=== PATIENT | male | born 1940 | race Caucasian/White ===

== ENCOUNTER 2017-06-14 11:15 | Inpatient (IN) ==
[2017-06-14] MEDS ORDERED: SODIUM CHLORIDE 0.9% 1,000 ML IV STA (11:50)
[2017-06-14 11:54] LABS: Basophils # 0.1 10*3/uL (0.0-0.2); Eosinophils # 0.1 10*3/uL (0.0-0.87); Hematocrit 39.6 VOL% (42.0-52.0); Hemoglobin 13.5 GM/DL (14.0-18.0); Immature Granulocytes % 4.5 %; Immature Granulocytes Absolute 0.33 #; Lymphocytes # 1.6 10*3/uL (1.4-4.0); Lymphocytes % 21.1 % (21.2-54.2); Mean Corpuscular HGB Conc 34.1 GM/DL (32-36); Mean Corpuscular Hemoglobin 28 PG (27-34); Mean Corpuscular Volume 80.8 FL (87-102); Mean Platelet Volume 11.1 FL (9.6-12.0); Monocytes # 1.6 10*3/uL (0.11-0.8); Monocytes % 22.3 % (1.7-12.7); Neutrophils # 3.7 10*3/uL (1.4-7.4); Neutrophils % 50.1 % (38.7-73.9); Platelet Count 247 T/CUMM (130-400); White Blood Count 7.3 T/CUMM (4-12)
[2017-06-14 12:22] LABS: Albumin 2.9 G/DL (3.4-5.0); Bilirubin,Total 0.5 MG/DL (0.2-1.0); Calcium 8.7 MG/DL (8.5-10.1); Osmolality,Calculated 272.4 MOS/KG (273-304); Total Protein 7.4 G/DL (6.4-8.3)
[2017-06-14 12:23] LABS: Band Neutrophils 1 % (0-10); Giant Platelets Few; Hypochromasia 1+; Lymphocytes 19 % (20-55); Platelet Estimate Adequate; Segmented Neutrophils 57 % (50-85); Total Cells Counted 100
[2017-06-14 14:42] LABS: Apearance,Urine CLEAR (Clear); Bilirubin,Urine Negative (Negative); Blood, Urine Small mg/dL (Negative); Glucose,Urine (UA) Negative (Negative); Ketones,Urine Negative (Negative); Nitrite,Urine Negative (Negative); Protein,Urine Negative; RBC,Urine <1 /HPF (0-4); Urine Color Straw (Yellow); Urine Specific Gravity 1.004 (1.001-1.035); Urine Urobilinogen < 2.0 EU/DL (0.2-1.0); WBC,Urine <1 /HPF (0-6)
[2017-06-14] MEDS ORDERED: ONDANSETRON 4 MG/2 ML VIAL IV PRN (15:08)
[2017-06-14] MEDS: SODIUM CHLORIDE 0.9% 1,000 ML IV SCH (15:31)
[2017-06-14] MEDS: INSULIN REGULAR 100 UNIT/ML SUBCUT SCH (19:59)
[2017-06-14] MEDS ORDERED: POTASSIUM CHLORIDE 20 MEQ TABLET PO ONE (22:46)
[2017-06-14] MEDS: ALPRAZolam 0.5 MG TABLET PO SCH (23:20)
[2017-06-14] MEDS: RANOLAZINE 500 MG TABLET PO SCH (23:20)
[2017-06-14] MEDS: metroNIDAZOLE INJ 250 MG in IV BAG 1 EACH IV SCH (23:59)
[2017-06-15] MEDS: SODIUM CHLORIDE 0.9% 1,000 ML IV SCH ×4 (00:08→21:32)
[2017-06-15] MEDS: metroNIDAZOLE INJ 250 MG in IV BAG 1 EACH IV SCH ×4 (05:08→23:26)
[2017-06-15 06:21] LABS: Osmolality,Calculated 281.4 MOS/KG (273-304); Potassium 3.6 MMOL/L (3.5-5.1); Uric Acid 8.2 MG/DL (3.5-7.2)
[2017-06-15] MEDS: INSULIN REGULAR 100 UNIT/ML SUBCUT SCH ×4 (07:31→21:30)
[2017-06-15] MEDS: CILOSTAZOL 50 MG TABLET PO SCH ×2 (07:50→16:50)
[2017-06-15] MEDS ORDERED: FUROSEMIDE 20 MG/2 ML VIAL IV ONE (08:00)
[2017-06-15] MEDS ORDERED: RIVAROXABAN 15 MG TABLET PO SCH (09:00)
[2017-06-15] MEDS: NEBIVOLOL 10 MG TABLET PO SCH (09:51)
[2017-06-15] MEDS: RANOLAZINE 500 MG TABLET PO SCH ×2 (09:52→21:29)
[2017-06-15] MEDS: POTASSIUM CHLORIDE 20 MEQ TABLET PO SCH (09:52)
[2017-06-15] MEDS: ISOSORBIDE MONONITRATE 60 MG TABLET PO SCH (09:52)
[2017-06-15] MEDS: ASPIRIN EC 81 MG TABLET PO SCH (09:59)
[2017-06-15 12:35] LABS: Basophils # 0.1 10*3/uL (0.0-0.2); Basophils % 0.9 % (0.0-0.8); Eosinophils # 0.1 10*3/uL (0.0-0.87); Eosinophils % 1.1 % (0.00-10.9); Hematocrit 37.3 VOL% (42.0-52.0); Hemoglobin 12.4 GM/DL (14.0-18.0); Immature Granulocytes % 7.6 %; Lymphocytes # 1.3 10*3/uL (1.4-4.0); Mean Corpuscular HGB Conc 33.2 GM/DL (32-36); Mean Corpuscular Hemoglobin 28 PG (27-34); Mean Corpuscular Volume 82.9 FL (87-102); Monocytes # 0.9 10*3/uL (0.11-0.8); Neutrophils # 3.8 10*3/uL (1.4-7.4); Neutrophils % 57.4 % (38.7-73.9); Platelet Count 223 T/CUMM (130-400); Red Cell Distribution Width 15.2 % (9.3-17.3); White Blood Count 6.6 T/CUMM (4-12)
[2017-06-15 15:52] LABS: Band Neutrophils 3 % (0-10); Eosinophils 1 % (0-10); Lymphocytes 20 % (20-55); Platelet Estimate Normal; Segmented Neutrophils 70 % (50-85)
[2017-06-15 15:53] LABS: Total Cells Counted 100
[2017-06-15] MEDS: ALPRAZolam 0.5 MG TABLET PO SCH (21:29)
[2017-06-16] MEDS: metroNIDAZOLE INJ 250 MG in IV BAG 1 EACH IV SCH ×4 (06:24→23:13)
[2017-06-16] MEDS: SODIUM CHLORIDE 0.9% 1,000 ML IV SCH ×3 (06:24→17:06)
[2017-06-16 06:43] LABS: Calcium 8.2 MG/DL (8.5-10.1); Osmolality,Calculated 285.5 MOS/KG (273-304); Potassium 3.8 MMOL/L (3.5-5.1)
[2017-06-16] MEDS: INSULIN REGULAR 100 UNIT/ML SUBCUT SCH ×4 (07:38→20:29)
[2017-06-16] MEDS: ASPIRIN EC 81 MG TABLET PO SCH (08:47)
[2017-06-16] MEDS: CILOSTAZOL 50 MG TABLET PO SCH ×2 (08:47→16:57)
[2017-06-16] MEDS: NEBIVOLOL 10 MG TABLET PO SCH (08:50)
[2017-06-16] MEDS: ISOSORBIDE MONONITRATE 60 MG TABLET PO SCH (08:50)
[2017-06-16] MEDS: POTASSIUM CHLORIDE 20 MEQ TABLET PO SCH (08:50)
[2017-06-16] MEDS: RANOLAZINE 500 MG TABLET PO SCH ×2 (08:50→20:20)
[2017-06-16] MEDS: ALPRAZolam 0.5 MG TABLET PO SCH (20:20)
[2017-06-17] MEDS: metroNIDAZOLE INJ 250 MG in IV BAG 1 EACH IV SCH (04:28)
[2017-06-17 06:20] LABS: Basophils % 0.5 % (0.0-0.8); Eosinophils # 0.1 10*3/uL (0.0-0.87); Eosinophils % 1.7 % (0.00-10.9); Hematocrit 35.1 VOL% (42.0-52.0); Hemoglobin 11.6 GM/DL (14.0-18.0); Immature Granulocytes % 9.7 %; Lymphocytes # 1.7 10*3/uL (1.4-4.0); Lymphocytes % 21.1 % (21.2-54.2); Mean Corpuscular Hemoglobin 27 PG (27-34); Mean Corpuscular Volume 82.8 FL (87-102); Mean Platelet Volume 11.3 FL (9.6-12.0); Monocytes % 12.5 % (1.7-12.7); Neutrophils # 4.5 10*3/uL (1.4-7.4); Neutrophils % 54.5 % (38.7-73.9); Platelet Count 222 T/CUMM (130-400); Red Blood Count 4.24 MC/CUMM (3.8-5.5); Red Cell Distribution Width 15.6 % (9.3-17.3); White Blood Count 8.3 T/CUMM (4-12)
[2017-06-17 06:45] LABS: Band Neutrophils 3 % (0-10); Giant Platelets Few; Hypochromasia 1+; Lymphocytes 25 % (20-55); Platelet Estimate Adequate; Segmented Neutrophils 57 % (50-85); Total Cells Counted 100
[2017-06-17 06:56] LABS: Albumin 2.4 G/DL (3.4-5.0); Bilirubin,Total 0.6 MG/DL (0.2-1.0); Calcium 8.5 MG/DL (8.5-10.1); Osmolality,Calculated 284.4 MOS/KG (273-304); Potassium 4.2 MMOL/L (3.5-5.1); Total Protein 5.4 G/DL (6.4-8.3)
[2017-06-17 07:27] VITALS: BP 143/65
[2017-06-17] MEDS ORDERED: DEXTROSE 50% 25 GM/50 ML VIAL IV PRN (08:18)
[2017-06-17] MEDS ORDERED: GLUCAGON 1 MG VIAL IM PRN (08:18)
[2017-06-17] MEDS: INSULIN REGULAR 100 UNIT/ML SUBCUT SCH (08:33)
[2017-06-17] MEDS: POTASSIUM CHLORIDE 20 MEQ TABLET PO SCH (08:35)
[2017-06-17] MEDS: ASPIRIN EC 81 MG TABLET PO SCH (08:35)
[2017-06-17] MEDS: NEBIVOLOL 10 MG TABLET PO SCH (08:35)
[2017-06-17] MEDS: CILOSTAZOL 50 MG TABLET PO SCH (08:35)
[2017-06-17] MEDS: RANOLAZINE 500 MG TABLET PO SCH (08:35)
[2017-06-17] MEDS: ISOSORBIDE MONONITRATE 60 MG TABLET PO SCH (08:35)
== END 2017-06-17 10:59 | disposition home or self-care (01) | DRG 392 ==
LOC: N.ED 11:15 → N.EDINP 13:15 → N.5E 15:01
PROVIDERS: ADMIT Internal Medicine; ATTEND Internal Medicine

== ENCOUNTER 2017-07-20 10:59 | Inpatient (IN) ==
[2017-07-20] MEDS ORDERED: cefTRIAXone 1,000 MG in SODIUM CHLORIDE 0.9% 100 ML IV STA (11:55)
[2017-07-20] MEDS ORDERED: ALBUTEROL/IPRATROPIUM 3 ML NEB RESP TX STA (11:55)
[2017-07-20] MEDS ORDERED: methylPREDNISolone SOD SUC 125 MG/2 ML VIAL IV STA (11:55)
[2017-07-20] MEDS ORDERED: MORPHINE 4 MG/1 ML VIAL IV STA ×2 (11:55→14:34)
[2017-07-20] MEDS ORDERED: ONDANSETRON 4 MG/2 ML VIAL IV STA (11:55)
[2017-07-20] MEDS ORDERED: FUROSEMIDE 100 MG/10 ML VIAL IV STA (11:55)
[2017-07-20 12:18] LABS: Basophils # 0.1 10*3/uL (0.0-0.2); Basophils % 0.5 % (0.0-0.8); Eosinophils % 0.2 % (0.00-10.9); Hematocrit 38.6 VOL% (42.0-52.0); Hemoglobin 12.6 GM/DL (14.0-18.0); Immature Granulocytes % 0.6 %; Immature Granulocytes Absolute 0.07 #; Lymphocytes # 0.9 10*3/uL (1.4-4.0); Lymphocytes % 8.5 % (21.2-54.2); Mean Corpuscular HGB Conc 32.6 GM/DL (32-36); Mean Corpuscular Hemoglobin 28 PG (27-34); Mean Corpuscular Volume 84.5 FL (87-102); Mean Platelet Volume 11.4 FL (9.6-12.0); Monocytes # 1.1 10*3/uL (0.11-0.8); Monocytes % 10.3 % (1.7-12.7); Neutrophils # 8.7 10*3/uL (1.4-7.4); Neutrophils % 79.9 % (38.7-73.9); Platelet Count 241 T/CUMM (130-400); Red Blood Count 4.57 MC/CUMM (3.8-5.5); Red Cell Distribution Width 17.3 % (9.3-17.3)
[2017-07-20 12:23] LABS: INR 1.6; PT Patient Result 16.4 SECS
[2017-07-20 12:36] LABS: Alanine Aminotransferase 14 U/L (16-61); Albumin 2.9 G/DL (3.4-5.0); Alkaline Phosphatase 58 U/L (45-117); Aspartate Amino Transferase 18 U/L (0-37); Blood Urea Nitrogen 25 MG/DL (7-18); Calcium 9.1 MG/DL (8.5-10.1); Glucose 121 MG/DL (74-106); Osmolality,Calculated 281.5 MOS/KG (273-304); Potassium 4.3 MMOL/L (3.5-5.1); Sodium 139 MMOL/L (136-145); Total Protein 6.9 G/DL (6.4-8.3); Troponin I Only < 0.015 NG/ML (0.00-0.045)
[2017-07-20] MEDS ORDERED: cefTRIAXone 1,000 MG VIAL ONE (12:44)
[2017-07-20] MEDS ORDERED: FUROSEMIDE 40 MG/4 ML VIAL ONE (12:44)
[2017-07-20] MEDS ORDERED: ONDANSETRON 4 MG/2 ML VIAL ONE (12:44)
[2017-07-20] MEDS ORDERED: methylPREDNISolone SOD SUC 125 MG/2 ML VIAL ONE (12:45)
[2017-07-20] MEDS ORDERED: MORPHINE 4 MG/1 ML VIAL ONE ×2 (12:45→14:27)
[2017-07-20] MEDS ORDERED: ACETAMINOPHEN 325 MG TABLET PO PRN (16:52)
[2017-07-20] MEDS ORDERED: MORPHINE 4 MG/1 ML VIAL IV PRN (16:52)
[2017-07-20] MEDS ORDERED: ALBUTEROL/IPRATROPIUM 3 ML NEB RESP TX PRN (16:52)
[2017-07-20] MEDS ORDERED: ONDANSETRON 4 MG/2 ML VIAL IV PRN (16:52)
[2017-07-20] MEDS: SODIUM CHLORIDE 0.9% 1,000 ML IV SCH (17:16)
[2017-07-20] MEDS ORDERED: NITROGLYCERIN SL 0.4 MG TABLET SL PRN (19:48)
[2017-07-20] MEDS: MAGNESIUM OXIDE 400 MG TABLET PO SCH (21:42)
[2017-07-20] MEDS: RANOLAZINE 500 MG TABLET PO SCH (21:42)
[2017-07-20] MEDS: DOCUSATE SODIUM 100 MG CAPSULE PO SCH (21:42)
[2017-07-20] MEDS: FENOFIBRATE 145 MG TABLET PO SCH (21:42)
[2017-07-20] MEDS: ALPRAZolam 0.5 MG TABLET PO SCH (21:42)
[2017-07-20] MEDS: ATORVASTATIN 40 MG TABLET PO SCH (21:42)
[2017-07-20] MEDS: BUMETANIDE 1 MG TABLET PO SCH (21:43)
[2017-07-20] MEDS: INSULIN ASPART PROTAMINE/ASPART 70/30 100 UNIT/ML SUBCUT SCH (21:43)
[2017-07-20] MEDS: methylPREDNISolone SOD SUC 40 MG/1 ML VIAL IV SCH (21:43)
[2017-07-21 04:42] LABS: Basophils % 0.1 % (0.0-0.8); Hematocrit 36.6 VOL% (42.0-52.0); Immature Granulocytes % 0.6 %; Immature Granulocytes Absolute 0.06 #; Lymphocytes # 0.9 10*3/uL (1.4-4.0); Lymphocytes % 9.1 % (21.2-54.2); Mean Corpuscular HGB Conc 32.8 GM/DL (32-36); Mean Corpuscular Hemoglobin 27 PG (27-34); Mean Corpuscular Volume 82.8 FL (87-102); Mean Platelet Volume 11.8 FL (9.6-12.0); Monocytes # 0.4 10*3/uL (0.11-0.8); Monocytes % 4.1 % (1.7-12.7); Neutrophils # 8.3 10*3/uL (1.4-7.4); Neutrophils % 86.1 % (38.7-73.9); Platelet Count 219 T/CUMM (130-400); Red Blood Count 4.42 MC/CUMM (3.8-5.5); Red Cell Distribution Width 17.1 % (9.3-17.3); White Blood Count 9.7 T/CUMM (4-12)
[2017-07-21 05:42] LABS: Albumin 2.8 G/DL (3.4-5.0); Bilirubin,Total 0.9 MG/DL (0.2-1.0); Calcium 8.4 MG/DL (8.5-10.1); Osmolality,Calculated 287.8 MOS/KG (273-304); Total Protein 6.3 G/DL (6.4-8.3); VLDL CHOLESTEROL 19.6 MG/DL
[2017-07-21] MEDS: methylPREDNISolone SOD SUC 40 MG/1 ML VIAL IV SCH ×3 (06:05→21:50)
[2017-07-21] MEDS ORDERED: PANTOPRAZOLE 40 MG TABLET PO SCH (09:00)
[2017-07-21] MEDS ORDERED: ALBUTEROL/IPRATROPIUM 3 ML NEB RESP TX SCH (09:00)
[2017-07-21] MEDS: BUMETANIDE 1 MG TABLET PO SCH ×2 (09:10→21:49)
[2017-07-21] MEDS: MAGNESIUM OXIDE 400 MG TABLET PO SCH ×2 (09:11→21:48)
[2017-07-21] MEDS: ISOSORBIDE MONONITRATE 60 MG TABLET PO SCH (09:11)
[2017-07-21] MEDS: RANOLAZINE 500 MG TABLET PO SCH ×2 (09:11→21:48)
[2017-07-21] MEDS: DOCUSATE SODIUM 100 MG CAPSULE PO SCH ×2 (09:12→21:48)
[2017-07-21] MEDS: RIVAROXABAN 15 MG TABLET PO SCH (09:12)
[2017-07-21] MEDS: PANTOPRAZOLE 40 MG TABLET PO SCH (09:12)
[2017-07-21] MEDS: ASPIRIN EC 81 MG TABLET PO SCH (09:12)
[2017-07-21] MEDS: NEBIVOLOL 10 MG TABLET PO SCH (09:12)
[2017-07-21] MEDS: INSULIN ASPART PROTAMINE/ASPART 70/30 100 UNIT/ML SUBCUT SCH ×2 (09:13→21:50)
[2017-07-21] MEDS: LEVOFLOXACIN INJ 500 MG in PREMIX 1 EACH IV SCH (10:00)
[2017-07-21] MEDS: SODIUM CHLORIDE 0.9% 1,000 ML IV SCH (11:08)
[2017-07-21] MEDS: ALBUTEROL/IPRATROPIUM 3 ML NEB RESP TX SCH ×2 (13:12→19:40)
[2017-07-21] MEDS: cefTRIAXone 1,000 MG in SYRINGE 1 EACH IV SCH (13:30)
[2017-07-21] MEDS ORDERED: DEXTROSE 50% 25 GM/50 ML VIAL IV PRN ×2 (16:00→16:08)
[2017-07-21] MEDS ORDERED: GLUCAGON 1 MG VIAL IM PRN ×2 (16:00→16:08)
[2017-07-21] MEDS: INSULIN LISPRO 100 UNIT/ML SUBCUT SCH ×2 (16:22→21:49)
[2017-07-21] MEDS: ATORVASTATIN 40 MG TABLET PO SCH (21:48)
[2017-07-21] MEDS: FENOFIBRATE 145 MG TABLET PO SCH (21:48)
[2017-07-21] MEDS: ALPRAZolam 0.5 MG TABLET PO SCH (21:49)
[2017-07-22 05:22] LABS: Basophils % 0.1 % (0.0-0.8); Hematocrit 36.5 VOL% (42.0-52.0); Immature Granulocytes % 0.8 %; Immature Granulocytes Absolute 0.13 #; Lymphocytes # 0.7 10*3/uL (1.4-4.0); Lymphocytes % 4.3 % (21.2-54.2); Mean Corpuscular HGB Conc 32.9 GM/DL (32-36); Mean Corpuscular Hemoglobin 28 PG (27-34); Mean Corpuscular Volume 83.5 FL (87-102); Monocytes # 0.9 10*3/uL (0.11-0.8); Monocytes % 5.1 % (1.7-12.7); Neutrophils # 15.1 10*3/uL (1.4-7.4); Neutrophils % 89.7 % (38.7-73.9); Platelet Count 233 T/CUMM (130-400); Red Blood Count 4.37 MC/CUMM (3.8-5.5); Red Cell Distribution Width 17.2 % (9.3-17.3); White Blood Count 16.8 T/CUMM (4-12)
[2017-07-22 05:45] LABS: Calcium 8.3 MG/DL (8.5-10.1); Potassium 5.1 MMOL/L (3.5-5.1)
[2017-07-22 05:48] LABS: Band Neutrophils 7 % (0-10); Lymphocytes 6 % (20-55); Segmented Neutrophils 83 % (50-85); Total Cells Counted 100
[2017-07-22] MEDS: ALBUTEROL/IPRATROPIUM 3 ML NEB RESP TX SCH ×3 (08:13→19:40)
[2017-07-22] MEDS ORDERED: methylPREDNISolone SOD SUC 40 MG/1 ML VIAL IV SCH (08:30)
[2017-07-22] MEDS: BUMETANIDE 1 MG TABLET PO SCH ×2 (08:41→22:11)
[2017-07-22] MEDS: ISOSORBIDE MONONITRATE 60 MG TABLET PO SCH (08:42)
[2017-07-22] MEDS: RIVAROXABAN 15 MG TABLET PO SCH (08:42)
[2017-07-22] MEDS: PANTOPRAZOLE 40 MG TABLET PO SCH (08:42)
[2017-07-22] MEDS: ASPIRIN EC 81 MG TABLET PO SCH (08:42)
[2017-07-22] MEDS: RANOLAZINE 500 MG TABLET PO SCH ×2 (08:42→22:11)
[2017-07-22] MEDS: NEBIVOLOL 10 MG TABLET PO SCH (08:42)
[2017-07-22] MEDS: MAGNESIUM OXIDE 400 MG TABLET PO SCH ×2 (08:42→22:13)
[2017-07-22] MEDS: INSULIN ASPART PROTAMINE/ASPART 70/30 100 UNIT/ML SUBCUT SCH ×2 (08:43→22:12)
[2017-07-22] MEDS: DOCUSATE SODIUM 100 MG CAPSULE PO SCH ×2 (08:43→22:12)
[2017-07-22] MEDS: INSULIN LISPRO 100 UNIT/ML SUBCUT SCH ×4 (08:49→22:12)
[2017-07-22] MEDS: cefTRIAXone 1,000 MG in SYRINGE 1 EACH IV SCH (12:58)
[2017-07-22] MEDS: ALPRAZolam 0.5 MG TABLET PO SCH (22:11)
[2017-07-22] MEDS: FENOFIBRATE 145 MG TABLET PO SCH (22:11)
[2017-07-22] MEDS: ATORVASTATIN 40 MG TABLET PO SCH (22:14)
[2017-07-23 04:40] LABS: Basophils % 0.1 % (0.0-0.8); Hematocrit 36.2 VOL% (42.0-52.0); Hemoglobin 11.9 GM/DL (14.0-18.0); Immature Granulocytes % 0.5 %; Immature Granulocytes Absolute 0.07 #; Lymphocytes # 1.4 10*3/uL (1.4-4.0); Mean Corpuscular HGB Conc 32.9 GM/DL (32-36); Mean Corpuscular Hemoglobin 27 PG (27-34); Mean Platelet Volume 11.7 FL (9.6-12.0); Monocytes # 1.1 10*3/uL (0.11-0.8); Monocytes % 8.8 % (1.7-12.7); Neutrophils # 10.2 10*3/uL (1.4-7.4); Neutrophils % 79.6 % (38.7-73.9); Platelet Count 235 T/CUMM (130-400); Red Blood Count 4.36 MC/CUMM (3.8-5.5); Red Cell Distribution Width 17.2 % (9.3-17.3); White Blood Count 12.9 T/CUMM (4-12)
[2017-07-23 05:12] LABS: Calcium 8.4 MG/DL (8.5-10.1); Osmolality,Calculated 286.7 MOS/KG (273-304); Potassium 3.8 MMOL/L (3.5-5.1)
[2017-07-23] MEDS: ALBUTEROL/IPRATROPIUM 3 ML NEB RESP TX SCH ×3 (07:29→19:09)
[2017-07-23] MEDS: INSULIN LISPRO 100 UNIT/ML SUBCUT SCH ×4 (08:38→21:06)
[2017-07-23] MEDS ORDERED: DIAZEPAM 5 MG TABLET PO ONE (09:03)
[2017-07-23] MEDS ORDERED: diphenhydrAMINE CAP 25 MG CAPSULE PO ONE (09:03)
[2017-07-23] MEDS: BUMETANIDE 1 MG TABLET PO SCH ×2 (09:07→21:07)
[2017-07-23] MEDS: DOCUSATE SODIUM 100 MG CAPSULE PO SCH ×2 (09:08→21:07)
[2017-07-23] MEDS: RANOLAZINE 500 MG TABLET PO SCH ×2 (09:08→21:07)
[2017-07-23] MEDS: NEBIVOLOL 10 MG TABLET PO SCH (09:08)
[2017-07-23] MEDS: ISOSORBIDE MONONITRATE 60 MG TABLET PO SCH (09:08)
[2017-07-23] MEDS: MAGNESIUM OXIDE 400 MG TABLET PO SCH ×2 (09:08→21:07)
[2017-07-23] MEDS: predniSONE 10 MG TABLET PO SCH (09:09)
[2017-07-23] MEDS: ASPIRIN EC 81 MG TABLET PO SCH (09:09)
[2017-07-23] MEDS: PANTOPRAZOLE 40 MG TABLET PO SCH (09:09)
[2017-07-23] MEDS: SODIUM BICARB INJ 50 MEQ in SODIUM CHLORIDE 0.45% 1,000 ML IV SCH ×2 (09:55→21:05)
[2017-07-23] MEDS: INSULIN ASPART PROTAMINE/ASPART 70/30 100 UNIT/ML SUBCUT SCH ×2 (09:59→21:06)
[2017-07-23] MEDS: LEVOFLOXACIN INJ 500 MG in PREMIX 1 EACH IV SCH (11:10)
[2017-07-23] MEDS ORDERED: HEPARIN/NACL 0.9% 2 UNITS/ML 1,000 ML IV ONE (12:08)
[2017-07-23] MEDS: cefTRIAXone 1,000 MG in SYRINGE 1 EACH IV SCH (13:14)
[2017-07-23] MEDS ORDERED: POTASSIUM CHLORIDE RIDER 10 MEQ in PREMIX 1 EACH IV PRN (13:56)
[2017-07-23] MEDS ORDERED: MAGNESIUM SULF RIDER 2 GM in PREMIX 1 EACH IV PRN (13:56)
[2017-07-23] MEDS ORDERED: MIDAZOLAM 2 MG/2 ML VIAL ONE (14:12)
[2017-07-23] MEDS ORDERED: HYDROmorphone 2 MG/1 ML VIAL ONE (14:12)
[2017-07-23] MEDS ORDERED: DEXTROSE 50% 25 GM/50 ML VIAL IV PRN (16:11)
[2017-07-23] MEDS ORDERED: GLUCAGON 1 MG VIAL IM PRN (16:11)
[2017-07-23] MEDS: FENOFIBRATE 145 MG TABLET PO SCH (21:07)
[2017-07-23] MEDS: ATORVASTATIN 40 MG TABLET PO SCH (21:07)
[2017-07-23] MEDS: ALPRAZolam 0.5 MG TABLET PO SCH (21:07)
[2017-07-24 04:51] VITALS: BP 110/65
[2017-07-24 05:09] LABS: Basophils % 0.3 % (0.0-0.8); Eosinophils # 0.1 10*3/uL (0.0-0.87); Eosinophils % 1.2 % (0.00-10.9); Hematocrit 40.1 VOL% (42.0-52.0); Hemoglobin 13.3 GM/DL (14.0-18.0); Immature Granulocytes % 0.3 %; Immature Granulocytes Absolute 0.04 #; Lymphocytes # 1.7 10*3/uL (1.4-4.0); Lymphocytes % 14.7 % (21.2-54.2); Mean Corpuscular HGB Conc 33.2 GM/DL (32-36); Mean Corpuscular Hemoglobin 27 PG (27-34); Mean Corpuscular Volume 82.7 FL (87-102); Mean Platelet Volume 11.2 FL (9.6-12.0); Monocytes # 1.3 10*3/uL (0.11-0.8); Monocytes % 11.4 % (1.7-12.7); Neutrophils # 8.4 10*3/uL (1.4-7.4); Neutrophils % 72.1 % (38.7-73.9); Platelet Count 260 T/CUMM (130-400); Red Blood Count 4.85 MC/CUMM (3.8-5.5); Red Cell Distribution Width 17.2 % (9.3-17.3); White Blood Count 11.6 T/CUMM (4-12)
[2017-07-24 05:56] LABS: Calcium 8.1 MG/DL (8.5-10.1); Osmolality,Calculated 282.7 MOS/KG (273-304); Potassium 3.6 MMOL/L (3.5-5.1)
[2017-07-24] MEDS: SODIUM BICARB INJ 50 MEQ in SODIUM CHLORIDE 0.45% 1,000 ML IV SCH (06:40)
[2017-07-24] MEDS: ALBUTEROL/IPRATROPIUM 3 ML NEB RESP TX SCH (06:50)
[2017-07-24] MEDS: INSULIN LISPRO 100 UNIT/ML SUBCUT SCH (09:24)
[2017-07-24] MEDS: PANTOPRAZOLE 40 MG TABLET PO SCH (09:27)
[2017-07-24] MEDS: NEBIVOLOL 10 MG TABLET PO SCH (09:27)
[2017-07-24] MEDS: RANOLAZINE 500 MG TABLET PO SCH (09:27)
[2017-07-24] MEDS: ISOSORBIDE MONONITRATE 60 MG TABLET PO SCH (09:27)
[2017-07-24] MEDS: DOCUSATE SODIUM 100 MG CAPSULE PO SCH (09:28)
[2017-07-24] MEDS: BUMETANIDE 1 MG TABLET PO SCH (09:28)
[2017-07-24] MEDS: predniSONE 10 MG TABLET PO SCH (09:28)
[2017-07-24] MEDS: ASPIRIN EC 81 MG TABLET PO SCH (09:28)
[2017-07-24] MEDS: MAGNESIUM OXIDE 400 MG TABLET PO SCH (09:28)
[2017-07-24] MEDS: INSULIN ASPART PROTAMINE/ASPART 70/30 100 UNIT/ML SUBCUT SCH (09:29)
== END 2017-07-24 10:15 | disposition home or self-care (01) | DRG 190 ==
LOC: N.ED 10:59 → N.EDINP 13:42 → N.TELEN 16:55
PROVIDERS: ADMIT Internal Medicine; ATTEND Internal Medicine

== ENCOUNTER 2018-06-01 07:31 | Inpatient (IN) ==
[2018-06-01] MEDS ORDERED: methylPREDNISolone SOD SUC 125 MG/2 ML VIAL IV STA (07:49)
[2018-06-01] MEDS ORDERED: ONDANSETRON 4 MG/2 ML VIAL IV STA (07:49)
[2018-06-01] MEDS ORDERED: LEVOFLOXACIN INJ 750 MG in PREMIX 1 EACH IV STA (07:49)
[2018-06-01] MEDS ORDERED: ALBUTEROL 2.5 MG/3 ML NEB RESP TX SCH (08:00)
[2018-06-01 08:20] LABS: Basophils # 0.1 10*3/uL (0.0-0.2); Basophils % 0.4 % (0.0-0.8); Eosinophils % 0.2 % (0.00-10.9); Hematocrit 41.4 VOL% (42.0-52.0); INR 1.6; Immature Granulocytes % 0.7 %; Immature Granulocytes Absolute 0.08 #; Lymphocytes # 1.6 10*3/uL (1.4-4.0); Lymphocytes % 13.3 % (21.2-54.2); Mean Corpuscular HGB Conc 31.4 GM/DL (32-36); Mean Corpuscular Hemoglobin 27 PG (27-34); Mean Corpuscular Volume 84.5 FL (87-102); Mean Platelet Volume 11.7 FL (9.6-12.0); Monocytes # 1.6 10*3/uL (0.11-0.8); Monocytes % 13.2 % (1.7-12.7); Neutrophils # 8.6 10*3/uL (1.4-7.4); Neutrophils % 72.2 % (38.7-73.9); PT Patient Result 16.9 SECS; Platelet Count 221 T/CUMM (130-400); Red Cell Distribution Width 17.2 % (9.3-17.3)
[2018-06-01 08:26] LABS: Partial Thromboplastin Time 40.1 SECS (0-40)
[2018-06-01 08:32] LABS: Alanine Aminotransferase 14 U/L (16-61); Albumin 3.4 G/DL (3.4-5.0); Alkaline Phosphatase 61 U/L (45-117); Aspartate Amino Transferase 15 U/L (0-37); Blood Urea Nitrogen 28 MG/DL (7-18); Calcium 8.9 MG/DL (8.5-10.1); Glucose 133 MG/DL (74-106); Osmolality,Calculated 284.5 MOS/KG (273-304); Potassium 3.9 MMOL/L (3.5-5.1); Sodium 139 MMOL/L (136-145); Total Protein 7.6 G/DL (6.4-8.3)
[2018-06-01 08:34] LABS: Troponin I 0.078 NG/ML (0.00-0.045)
[2018-06-01] MEDS ORDERED: FUROSEMIDE 40 MG/4 ML VIAL IV STA (08:37)
[2018-06-01] MEDS ORDERED: ASPIRIN EC 325 MG TABLET PO STA (09:08)
[2018-06-01] MEDS ORDERED: DEXTROSE 50% 25 GM/50 ML VIAL IV PRN (09:08)
[2018-06-01] MEDS ORDERED: GLUCAGON 1 MG VIAL IM PRN (09:08)
[2018-06-01] MEDS ORDERED: ONDANSETRON 4 MG/2 ML VIAL IV PRN (09:08)
[2018-06-01] MEDS ORDERED: ASPIRIN CHEW 81 MG TABLET PO ONE (09:28)
[2018-06-01 09:51] LABS: Apearance,Urine CLEAR (Clear); Bilirubin,Urine Negative (Negative); Blood, Urine Negative (Negative); Glucose,Urine (UA) Negative (Negative); Ketones,Urine Negative (Negative); Mucus,Urine Occasional /LPF (Occasional); Nitrite,Urine Negative (Negative); Protein,Urine Negative; RBC,Urine 1 /HPF (0-4); Urine Color Yellow (Yellow); Urine Specific Gravity 1.014 (1.001-1.035); WBC,Urine <1 /HPF (0-6)
[2018-06-01] MEDS: LEVALBUTEROL 0.63 MG/3 ML NEB RESP TX SCH ×3 (10:40→19:50)
[2018-06-01] MEDS: INSULIN REGULAR 100 UNIT/ML SUBCUT SCH ×3 (11:43→21:20)
[2018-06-01] MEDS ORDERED: ALBUTEROL 1.25 MG/3 ML NEB RESP TX SCH (13:00)
[2018-06-01 14:45] LABS: Troponin I 0.084 NG/ML (0.00-0.045)
[2018-06-01] MEDS ORDERED: FUROSEMIDE 40 MG/4 ML VIAL IV SCH (16:00)
[2018-06-01] MEDS: methylPREDNISolone SOD SUC 40 MG/1 ML VIAL IV SCH (17:29)
[2018-06-01] MEDS: INSULIN ASPART PROTAMINE/ASPART 70/30 100 UNIT/ML SUBCUT SCH (17:30)
[2018-06-01] MEDS ORDERED: ALPRAZolam 0.25 MG TABLET PO SCH (21:00)
[2018-06-01] MEDS: RANOLAZINE 500 MG TABLET PO SCH (21:20)
[2018-06-01] MEDS: ATORVASTATIN 40 MG TABLET PO SCH (21:21)
[2018-06-02] MEDS: LEVALBUTEROL 0.63 MG/3 ML NEB RESP TX SCH ×4 (01:04→19:32)
[2018-06-02 04:21] LABS: Troponin I 0.096 NG/ML (0.00-0.045)
[2018-06-02] MEDS: methylPREDNISolone SOD SUC 40 MG/1 ML VIAL IV SCH ×3 (05:02→21:58)
[2018-06-02 05:21] LABS: Basophils % 0.1 % (0.0-0.8); Hematocrit 37.5 VOL% (42.0-52.0); Immature Granulocytes % 0.4 %; Immature Granulocytes Absolute 0.06 #; Lymphocytes % 6.3 % (21.2-54.2); Mean Corpuscular Hemoglobin 26 PG (27-34); Mean Corpuscular Volume 82.2 FL (87-102); Mean Platelet Volume 12.2 FL (9.6-12.0); Monocytes # 0.9 10*3/uL (0.11-0.8); Monocytes % 5.6 % (1.7-12.7); Neutrophils # 13.4 10*3/uL (1.4-7.4); Neutrophils % 87.6 % (38.7-73.9); Platelet Count 228 T/CUMM (130-400); Red Blood Count 4.56 MC/CUMM (3.8-5.5); Red Cell Distribution Width 16.6 % (9.3-17.3); White Blood Count 15.3 T/CUMM (4-12)
[2018-06-02 05:45] LABS: Blood Urea Nitrogen 38 MG/DL (7-18); Calcium 8.6 MG/DL (8.5-10.1); Glucose 265 MG/DL (74-106); Osmolality,Calculated 285.2 MOS/KG (273-304); Potassium 3.7 MMOL/L (3.5-5.1); Sodium 134 MMOL/L (136-145)
[2018-06-02 05:48] LABS: Troponin I 0.059 NG/ML (0.00-0.045)
[2018-06-02] MEDS ORDERED: INSULIN ASPART PROTAMINE/ASPART 70/30 100 UNIT/ML SUBCUT SCH ×2 (07:30→18:12)
[2018-06-02] MEDS ORDERED: FUROSEMIDE 40 MG/4 ML VIAL IV SCH (08:38)
[2018-06-02] MEDS ORDERED: PANTOPRAZOLE 40 MG TABLET PO SCH (09:00)
[2018-06-02] MEDS: RIVAROXABAN 15 MG TABLET PO SCH (09:45)
[2018-06-02] MEDS: CARVEDILOL 12.5 MG TABLET PO SCH ×2 (09:46→21:57)
[2018-06-02] MEDS: ISOSORBIDE MONONITRATE 60 MG TABLET PO SCH (09:46)
[2018-06-02] MEDS: RANOLAZINE 500 MG TABLET PO SCH ×2 (09:46→21:57)
[2018-06-02] MEDS: amLODIPine 2.5 MG TABLET PO SCH (09:47)
[2018-06-02] MEDS: INSULIN REGULAR 100 UNIT/ML SUBCUT SCH ×4 (09:49→21:57)
[2018-06-02] MEDS: FUROSEMIDE 40 MG/4 ML VIAL IV SCH ×2 (09:53→18:21)
[2018-06-02] MEDS ORDERED: BUMETANIDE 1 MG TABLET PO SCH (16:00)
[2018-06-02] MEDS: ALPRAZolam 0.5 MG TABLET PO SCH (21:57)
[2018-06-02] MEDS: ATORVASTATIN 40 MG TABLET PO SCH (21:57)
[2018-06-03] MEDS: LEVALBUTEROL 0.63 MG/3 ML NEB RESP TX SCH ×4 (00:22→20:12)
[2018-06-03 05:13] LABS: Basophils % 0.1 % (0.0-0.8); Hematocrit 33.7 VOL% (42.0-52.0); Hemoglobin 10.9 GM/DL (14.0-18.0); Immature Granulocytes % 0.7 %; Immature Granulocytes Absolute 0.11 #; Lymphocytes # 0.8 10*3/uL (1.4-4.0); Mean Corpuscular HGB Conc 32.3 GM/DL (32-36); Mean Corpuscular Hemoglobin 27 PG (27-34); Mean Platelet Volume 12.1 FL (9.6-12.0); Monocytes # 0.8 10*3/uL (0.11-0.8); Neutrophils # 13.9 10*3/uL (1.4-7.4); Neutrophils % 89.2 % (38.7-73.9); Platelet Count 219 T/CUMM (130-400); Red Blood Count 4.11 MC/CUMM (3.8-5.5); Red Cell Distribution Width 16.4 % (9.3-17.3); White Blood Count 15.5 T/CUMM (4-12)
[2018-06-03 05:23] LABS: Calcium 8.4 MG/DL (8.5-10.1); Osmolality,Calculated 289.1 MOS/KG (273-304); Potassium 3.9 MMOL/L (3.5-5.1)
[2018-06-03] MEDS: ASPIRIN EC 81 MG TABLET PO SCH (08:31)
[2018-06-03] MEDS: INSULIN REGULAR 100 UNIT/ML SUBCUT SCH ×4 (08:31→21:40)
[2018-06-03] MEDS: amLODIPine 2.5 MG TABLET PO SCH (08:32)
[2018-06-03] MEDS: CARVEDILOL 12.5 MG TABLET PO SCH ×2 (08:32→21:39)
[2018-06-03] MEDS: RANOLAZINE 500 MG TABLET PO SCH ×2 (08:32→21:40)
[2018-06-03] MEDS: PANTOPRAZOLE 40 MG TABLET PO SCH (08:32)
[2018-06-03] MEDS: RIVAROXABAN 15 MG TABLET PO SCH (08:32)
[2018-06-03] MEDS: INSULIN ASPART PROTAMINE/ASPART 70/30 100 UNIT/ML SUBCUT SCH ×2 (08:32→10:38)
[2018-06-03] MEDS: ISOSORBIDE MONONITRATE 60 MG TABLET PO SCH (08:33)
[2018-06-03] MEDS: MAGNESIUM CHLORIDE 64 MG TABLET PO SCH ×2 (08:59→21:40)
[2018-06-03] MEDS ORDERED: LEVOFLOXACIN INJ 750 MG in PREMIX 1 EACH IV SCH (09:00)
[2018-06-03] MEDS: FUROSEMIDE 40 MG/4 ML VIAL IV SCH (10:38)
[2018-06-03] MEDS: CYANOCOBALAMIN 1000 MCG/1 ML VIAL IM SCH (12:53)
[2018-06-03] MEDS: BUMETANIDE 1 MG TABLET PO SCH (16:16)
[2018-06-03] MEDS ORDERED: ALPRAZolam 0.5 MG TABLET PO SCH (21:00)
[2018-06-03] MEDS ORDERED: FENOFIBRATE 145 MG TABLET PO SCH (21:00)
[2018-06-03] MEDS: ALPRAZolam 0.5 MG TABLET PO SCH (21:40)
[2018-06-03] MEDS: ATORVASTATIN 40 MG TABLET PO SCH (21:40)
[2018-06-04] MEDS: LEVALBUTEROL 0.63 MG/3 ML NEB RESP TX SCH ×2 (01:57→07:05)
[2018-06-04 04:26] LABS: Calcium 8.3 MG/DL (8.5-10.1); Osmolality,Calculated 290.5 MOS/KG (273-304); Potassium 3.4 MMOL/L (3.5-5.1)
[2018-06-04 05:57] LABS: Basophils % 0.1 % (0.0-0.8); Eosinophils % 0.3 % (0.00-10.9); Hematocrit 35.3 VOL% (42.0-52.0); Hemoglobin 11.2 GM/DL (14.0-18.0); Immature Granulocytes % 0.9 %; Immature Granulocytes Absolute 0.09 #; Lymphocytes # 1.8 10*3/uL (1.4-4.0); Lymphocytes % 17.5 % (21.2-54.2); Mean Corpuscular HGB Conc 31.7 GM/DL (32-36); Mean Corpuscular Hemoglobin 26 PG (27-34); Mean Corpuscular Volume 83.3 FL (87-102); Mean Platelet Volume 11.6 FL (9.6-12.0); Monocytes # 1.2 10*3/uL (0.11-0.8); Monocytes % 11.1 % (1.7-12.7); Neutrophils # 7.3 10*3/uL (1.4-7.4); Neutrophils % 70.1 % (38.7-73.9); Platelet Count 209 T/CUMM (130-400); Red Blood Count 4.24 MC/CUMM (3.8-5.5); Red Cell Distribution Width 16.5 % (9.3-17.3); White Blood Count 10.3 T/CUMM (4-12)
[2018-06-04 07:49] VITALS: BP 122/58
[2018-06-04] MEDS: INSULIN REGULAR 100 UNIT/ML SUBCUT SCH (08:31)
[2018-06-04] MEDS: INSULIN ASPART PROTAMINE/ASPART 70/30 100 UNIT/ML SUBCUT SCH (08:32)
[2018-06-04] MEDS: RIVAROXABAN 15 MG TABLET PO SCH (08:32)
[2018-06-04] MEDS: ISOSORBIDE MONONITRATE 60 MG TABLET PO SCH (08:32)
[2018-06-04] MEDS: MAGNESIUM CHLORIDE 64 MG TABLET PO SCH (08:32)
[2018-06-04] MEDS: CYANOCOBALAMIN 1000 MCG/1 ML VIAL IM SCH (08:33)
[2018-06-04] MEDS: PANTOPRAZOLE 40 MG TABLET PO SCH (08:33)
[2018-06-04] MEDS: RANOLAZINE 500 MG TABLET PO SCH (08:33)
[2018-06-04] MEDS: ASPIRIN EC 81 MG TABLET PO SCH (08:33)
[2018-06-04] MEDS: BUMETANIDE 1 MG TABLET PO SCH (08:33)
[2018-06-04] MEDS: amLODIPine 2.5 MG TABLET PO SCH (08:33)
[2018-06-04] MEDS: CARVEDILOL 12.5 MG TABLET PO SCH (08:33)
== END 2018-06-04 09:58 | disposition home or self-care (01) | DRG 291 ==
LOC: N.ED 07:31 → N.EDINP 08:50 → N.TELEN 15:39
PROVIDERS: ADMIT Internal Medicine; ATTEND Internal Medicine

== ENCOUNTER 2021-05-03 02:41 | Inpatient (IN) ==
[2021-05-03] MEDS ORDERED: ONDANSETRON 4 MG/2 ML VIAL IV STA (03:53)
[2021-05-03] MEDS ORDERED: FUROSEMIDE 40 MG/4 ML VIAL IV STA (03:53)
[2021-05-03] MEDS ORDERED: methylPREDNISolone SOD SUC 125 MG/2 ML VIAL IV STA (03:53)
[2021-05-03] MEDS ORDERED: ALBUTEROL/IPRATROPIUM 3 ML NEB RESP TX STA (03:53)
[2021-05-03 05:29] LABS: Basophils % 0.5 % (0.0-0.8); Eosinophils % 0.5 % (0.00-10.9); Hematocrit 37.4 VOL% (42.0-52.0); Hemoglobin 11.7 GM/DL (14.0-18.0); Immature Granulocytes Absolute 0.08 #; Lymphocytes # 1.2 10*3/uL (1.4-4.0); Lymphocytes % 14.9 % (21.2-54.2); Mean Corpuscular HGB Conc 31.3 GM/DL (32-36); Mean Corpuscular Volume 84.6 FL (87-102); Mean Platelet Volume 11.4 FL (9.6-12.0); Monocytes % 13.7 % (1.7-12.7); Neutrophils % 69.4 % (38.7-73.9); Platelet Count 199 T/CUMM (130-400); Red Blood Count 4.42 MC/CUMM (3.8-5.5); Red Cell Distribution Width 17.2 % (9.3-17.3); White Blood Count 8.1 T/CUMM (4-12)
[2021-05-03 05:50] LABS: INR 1.2; PT Patient Result 13.3 SECS (10.5-12.0)
[2021-05-03 06:12] LABS: Albumin 2.8 G/DL (3.4-5.0); Bilirubin,Total 0.7 MG/DL (0.20-1.00); Calcium 8.4 MG/DL (8.5-10.1); Osmolality,Calculated 289.4 MOS/KG (273-304); Potassium 3.9 MMOL/L (3.5-5.1); Total Protein 6.4 G/DL (6.4-8.2)
[2021-05-03 06:47] LABS: Bacteria,Urine Occasional /HPF (Few); Bilirubin,Urine Negative (Negative); Blood, Urine Negative (Negative); Glucose,Urine (UA) Negative (Negative); Ketones,Urine Negative (Negative); Nitrite,Urine Negative (Negative); Protein,Urine Negative; RBC,Urine 1 /HPF (0-4); Urine Appearance CLEAR (Clear); Urine Color Straw (Yellow); Urine Specific Gravity 1.008 (1.001-1.035); Urine Urobilinogen < 2.0 EU/DL (<2.0)
[2021-05-03] MEDS ORDERED: ONDANSETRON 4 MG/2 ML VIAL IV PRN (07:19)
[2021-05-03] MEDS ORDERED: ACETAMINOPHEN 325 MG TABLET PO PRN (07:19)
[2021-05-03] MEDS ORDERED: DEXTROSE 10% 250 ML BAG IV PRN (07:19)
[2021-05-03] MEDS ORDERED: GLUCAGON 1 MG VIAL IM PRN (07:19)
[2021-05-03] MEDS ORDERED: ENOXAPARIN 40 MG/0.4 ML SYRINGE SUBCUT SCH (07:30)
[2021-05-03] MEDS ORDERED: ALBUTEROL/IPRATROPIUM 3 ML NEB RESP TX PRN (08:56)
[2021-05-03] MEDS ORDERED: ENOXAPARIN 30 MG/0.3 ML SYRINGE SUBCUT SCH (09:00)
[2021-05-03] MEDS: INSULIN LISPRO 100 UNIT/ML SUBCUT SCH ×4 (10:38→21:28)
[2021-05-03] MEDS ORDERED: MELATONIN 3 MG TABLET PO PRN (10:59)
[2021-05-03] MEDS: RANOLAZINE 500 MG TABLET PO SCH ×2 (12:54→21:27)
[2021-05-03] MEDS: carvediloL 12.5 MG TABLET PO SCH ×2 (12:54→21:28)
[2021-05-03] MEDS: DOCUSATE SODIUM 100 MG CAPSULE PO SCH ×2 (12:54→21:28)
[2021-05-03] MEDS: ISOSORBIDE MONONITRATE 60 MG TABLET PO SCH (12:54)
[2021-05-03] MEDS: PANTOPRAZOLE 40 MG TABLET PO SCH (12:54)
[2021-05-03] MEDS: BUMETANIDE 1 MG TABLET PO SCH ×2 (12:54→21:27)
[2021-05-03] MEDS: ASPIRIN EC 81 MG TABLET PO SCH (12:54)
[2021-05-03] MEDS: ASCORBIC ACID 500 MG TABLET PO SCH ×2 (12:55→21:28)
[2021-05-03] MEDS: BENZONATATE 100 MG CAPSULE PO SCH ×3 (12:55→21:28)
[2021-05-03] MEDS: RIVAROXABAN 15 MG TABLET PO SCH (12:55)
[2021-05-03] MEDS: hydrALAZINE 25 MG TABLET PO SCH ×2 (13:30→21:28)
[2021-05-03] MEDS: FUROSEMIDE 40 MG/4 ML VIAL IV SCH (17:00)
[2021-05-03] MEDS: MORPHINE 2 MG/1 ML SYRINGE IV PRN ×2 (17:29→21:35)
[2021-05-03] MEDS: ATORVASTATIN 40 MG TABLET PO SCH (21:27)
[2021-05-04 01:11] LABS: Basophils % 0.1 % (0.0-0.8); Hematocrit 32.9 VOL% (42.0-52.0); Hemoglobin 10.8 GM/DL (14.0-18.0); Immature Granulocytes % 0.8 %; Immature Granulocytes Absolute 0.07 #; Lymphocytes # 1.2 10*3/uL (1.4-4.0); Lymphocytes % 13.8 % (21.2-54.2); Mean Corpuscular HGB Conc 32.8 GM/DL (32-36); Mean Corpuscular Volume 82.3 FL (87-102); Mean Platelet Volume 11.3 FL (9.6-12.0); Monocytes % 12.4 % (1.7-12.7); Neutrophils % 72.9 % (38.7-73.9); Platelet Count 232 T/CUMM (130-400); Red Cell Distribution Width 16.8 % (9.3-17.3); White Blood Count 8.5 T/CUMM (4-12)
[2021-05-04 01:29] LABS: Calcium 8.4 MG/DL (8.5-10.1); Osmolality,Calculated 280.4 MOS/KG (273-304); Potassium 3.6 MMOL/L (3.5-5.1)
[2021-05-04] MEDS: MORPHINE 2 MG/1 ML SYRINGE IV PRN ×4 (03:15→21:37)
[2021-05-04] MEDS: RIVAROXABAN 15 MG TABLET PO SCH (09:12)
[2021-05-04] MEDS: DOCUSATE SODIUM 100 MG CAPSULE PO SCH ×2 (09:12→21:37)
[2021-05-04] MEDS: RANOLAZINE 500 MG TABLET PO SCH ×2 (09:12→21:37)
[2021-05-04] MEDS: ISOSORBIDE MONONITRATE 60 MG TABLET PO SCH (09:12)
[2021-05-04] MEDS: BENZONATATE 100 MG CAPSULE PO SCH ×3 (09:13→21:37)
[2021-05-04] MEDS: ASCORBIC ACID 500 MG TABLET PO SCH ×2 (09:13→21:37)
[2021-05-04] MEDS: PANTOPRAZOLE 40 MG TABLET PO SCH (09:13)
[2021-05-04] MEDS: BUMETANIDE 1 MG TABLET PO SCH ×2 (09:13→21:37)
[2021-05-04] MEDS: ASPIRIN EC 81 MG TABLET PO SCH (09:13)
[2021-05-04] MEDS: carvediloL 12.5 MG TABLET PO SCH ×2 (09:13→21:37)
[2021-05-04] MEDS: FUROSEMIDE 40 MG/4 ML VIAL IV SCH (09:16)
[2021-05-04] MEDS: hydrALAZINE 25 MG TABLET PO SCH ×2 (10:04→21:37)
[2021-05-04] MEDS: INSULIN LISPRO 100 UNIT/ML SUBCUT SCH ×4 (10:21→22:25)
[2021-05-04] MEDS: ATORVASTATIN 40 MG TABLET PO SCH (21:37)
[2021-05-05] MEDS: MORPHINE 2 MG/1 ML SYRINGE IV PRN ×2 (01:33→05:03)
[2021-05-05 06:07] LABS: Basophils % 0.6 % (0.0-0.8); Eosinophils # 0.1 10*3/uL (0.0-0.87); Eosinophils % 1.7 % (0.00-10.9); Hematocrit 33.2 VOL% (42.0-52.0); Hemoglobin 10.5 GM/DL (14.0-18.0); Immature Granulocytes % 0.6 %; Immature Granulocytes Absolute 0.04 #; Lymphocytes # 1.5 10*3/uL (1.4-4.0); Lymphocytes % 22.3 % (21.2-54.2); Mean Corpuscular HGB Conc 31.6 GM/DL (32-36); Mean Corpuscular Volume 83.8 FL (87-102); Mean Platelet Volume 11.7 FL (9.6-12.0); Monocytes % 12.2 % (1.7-12.7); Neutrophils % 62.6 % (38.7-73.9); Platelet Count 230 T/CUMM (130-400); Red Blood Count 3.96 MC/CUMM (3.8-5.5); Red Cell Distribution Width 17.1 % (9.3-17.3); White Blood Count 6.6 T/CUMM (4-12)
[2021-05-05] MEDS ORDERED: BUMETANIDE 1 MG TABLET PO SCH (08:00)
[2021-05-05 08:19] VITALS: BP 128/63
[2021-05-05] MEDS: DOCUSATE SODIUM 100 MG CAPSULE PO SCH (08:41)
[2021-05-05] MEDS: ASPIRIN EC 81 MG TABLET PO SCH (08:42)
[2021-05-05] MEDS: ASCORBIC ACID 500 MG TABLET PO SCH (08:42)
[2021-05-05] MEDS: ISOSORBIDE MONONITRATE 60 MG TABLET PO SCH (08:42)
[2021-05-05] MEDS: RANOLAZINE 500 MG TABLET PO SCH (08:42)
[2021-05-05] MEDS: PANTOPRAZOLE 40 MG TABLET PO SCH (08:42)
[2021-05-05] MEDS: RIVAROXABAN 15 MG TABLET PO SCH (08:42)
[2021-05-05] MEDS: carvediloL 12.5 MG TABLET PO SCH (08:42)
[2021-05-05] MEDS: INSULIN LISPRO 100 UNIT/ML SUBCUT SCH (08:43)
[2021-05-05] MEDS: BENZONATATE 100 MG CAPSULE PO SCH (08:51)
[2021-05-05] MEDS: hydrALAZINE 25 MG TABLET PO SCH (08:53)
== END 2021-05-05 11:13 | disposition home or self-care (01) | DRG 291 ==
LOC: EDBD → EDUNIT# → N.ED 02:41 → N.EDINP 07:19 → N.TELEN 18:14
PROVIDERS: ADMIT Internal Medicine; ATTEND Internal Medicine

== ENCOUNTER 2021-07-15 09:31 | Inpatient (IN) ==
[2021-07-15] MEDS ORDERED: SODIUM CHLORIDE 0.9% 500 ML IV STA (09:55)
[2021-07-15 09:57] LABS: Basophils % 0.2 % (0.0-0.8); Hemoglobin 11.3 GM/DL (14.0-18.0); Immature Granulocytes % 0.8 %; Immature Granulocytes Absolute 0.12 #; Lymphocytes # 0.7 10*3/uL (1.4-4.0); Lymphocytes % 4.2 % (21.2-54.2); Mean Corpuscular HGB Conc 32.3 GM/DL (32-36); Mean Corpuscular Volume 81.8 FL (87-102); Mean Platelet Volume 11.4 FL (9.6-12.0); Monocytes # 1.4 10*3/uL (0.11-0.8); Monocytes % 8.9 % (1.7-12.7); Neutrophils % 85.9 % (38.7-73.9); Platelet Count 197 T/CUMM (130-400); Red Blood Count 4.28 MC/CUMM (3.8-5.5); Red Cell Distribution Width 17.2 % (9.3-17.3)
[2021-07-15 10:14] LABS: INR 1.2; PT Patient Result 13.7 SECS (10.5-12.0)
[2021-07-15 10:17] LABS: Albumin 2.8 G/DL (3.4-5.0); Bilirubin,Total 1.2 MG/DL (0.20-1.00); Calcium 8.7 MG/DL (8.5-10.1); Potassium 3.7 MMOL/L (3.5-5.1)
[2021-07-15 10:19] LABS: Band Neutrophils 5 % (0-10); Lymphocytes 3 % (20-55); Metamyelocytes 1 %; Total Cells Counted 100
[2021-07-15 10:20] LABS: Polychromasia Few
[2021-07-15 10:22] LABS: Platelet Estimate Normal
[2021-07-15] MEDS ORDERED: ACETAMINOPHEN 500 MG TABLET ONE (10:22)
[2021-07-15] MEDS ORDERED: ACETAMINOPHEN 500 MG TABLET PO STA (10:25)
[2021-07-15] MEDS ORDERED: cefTRIAXone 1,000 MG in SODIUM CHLORIDE 0.9% 100 ML IV STA (10:50)
[2021-07-15 11:09] LABS: Bacteria,Urine Occasional /HPF (Few); Bilirubin,Urine Negative (Negative); Blood, Urine Negative (Negative); Glucose,Urine (UA) Negative (Negative); Ketones,Urine Trace mg/dL (Negative); Nitrite,Urine Negative (Negative); Protein,Urine Negative (Negative); RBC,Urine 6 /HPF (0-4); Squamous Epithelial Cell,Urine Occasional /HPF (0-10); Urine Appearance Slightly Cloudy (Clear); Urine Color Yellow (Yellow); Urine Specific Gravity 1.015 (1.001-1.035)
[2021-07-15 13:22] LABS: Barbiturates Screen,Urine Negative (Negative); Benzodiazepines Screen,Urine Negative (Negative); Cannabinoid Screen,Urine Positive (Negative); Opiate Screen,Urine Negative (Negative); Phencyclidine Screen,Urine Negative (Negative)
[2021-07-15] MEDS ORDERED: ONDANSETRON 4 MG/2 ML VIAL IV PRN (18:58)
[2021-07-15] MEDS ORDERED: ACETAMINOPHEN 325 MG TABLET PO PRN ×2 (18:58)
[2021-07-15] MEDS ORDERED: NITROGLYCERIN SL 0.4 MG TABLET SL PRN (18:58)
[2021-07-15] MEDS: SODIUM CHLORIDE 0.9% 1,000 ML IV SCH (19:33)
[2021-07-15] MEDS: INSULIN NPH/REGULAR 70/30 100 UNIT/ML SUBCUT SCH (19:34)
[2021-07-15] MEDS ORDERED: carvediloL 12.5 MG TABLET PO SCH (21:00)
[2021-07-15] MEDS: BUMETANIDE 1 MG TABLET PO SCH (21:28)
[2021-07-15] MEDS: ATORVASTATIN 40 MG TABLET PO SCH (21:29)
[2021-07-15] MEDS: ASCORBIC ACID 500 MG TABLET PO SCH (21:29)
[2021-07-15] MEDS: RANOLAZINE 500 MG TABLET PO SCH (21:29)
[2021-07-15] MEDS: DOCUSATE SODIUM 100 MG CAPSULE PO SCH (21:31)
[2021-07-15] MEDS: MELATONIN 3 MG TABLET PO PRN (21:31)
[2021-07-15] MEDS: MAGNESIUM CHLORIDE 64 MG TABLET PO SCH (21:31)
[2021-07-15] MEDS: BENZONATATE 100 MG CAPSULE PO SCH (21:31)
[2021-07-15] MEDS: FENOFIBRIC ACID 135 MG PO SCH (21:34)
[2021-07-15] MEDS: [UNRECOGNIZED DRUG - OTHER] PO SCH (21:34)
[2021-07-16 05:40] LABS: Basophils % 0.2 % (0.0-0.8); Eosinophils # 0.1 10*3/uL (0.0-0.87); Eosinophils % 0.5 % (0.00-10.9); Hematocrit 32.2 VOL% (42.0-52.0); Hemoglobin 10.7 GM/DL (14.0-18.0); Immature Granulocytes % 0.7 %; Immature Granulocytes Absolute 0.09 #; Mean Corpuscular HGB Conc 33.2 GM/DL (32-36); Mean Corpuscular Volume 81.3 FL (87-102); Mean Platelet Volume 11.7 FL (9.6-12.0); Monocytes # 1.3 10*3/uL (0.11-0.8); Neutrophils % 80.6 % (38.7-73.9); Platelet Count 187 T/CUMM (130-400); Red Blood Count 3.96 MC/CUMM (3.8-5.5); Red Cell Distribution Width 17.1 % (9.3-17.3); White Blood Count 12.5 T/CUMM (4-12)
[2021-07-16 06:15] LABS: Calcium 8.7 MG/DL (8.5-10.1)
[2021-07-16] MEDS ORDERED: NON-FORMULARY MEDICATION (Omeprazole 20 MG capsule,delayed release(DR/EC)) PO SCH (06:30)
[2021-07-16] MEDS: INSULIN NPH/REGULAR 70/30 100 UNIT/ML SUBCUT SCH ×2 (08:18→16:46)
[2021-07-16] MEDS: DOCUSATE SODIUM 100 MG CAPSULE PO SCH ×2 (08:58→21:23)
[2021-07-16] MEDS: CHOLECALCIFEROL 1,000 UNIT TABLET PO SCH (08:58)
[2021-07-16] MEDS: ISOSORBIDE MONONITRATE 60 MG TABLET PO SCH (08:58)
[2021-07-16] MEDS: BUMETANIDE 1 MG TABLET PO SCH ×2 (08:58→21:22)
[2021-07-16] MEDS: OMEGA 3 ACID ETHYL ESTERS 1 GM CAPSULE PO SCH ×2 (08:58→21:22)
[2021-07-16] MEDS: RANOLAZINE 500 MG TABLET PO SCH ×2 (08:58→21:22)
[2021-07-16] MEDS: ASPIRIN EC 81 MG TABLET PO SCH (08:58)
[2021-07-16] MEDS: RIVAROXABAN 15 MG TABLET PO SCH (08:58)
[2021-07-16] MEDS: MAGNESIUM CHLORIDE 64 MG TABLET PO SCH ×2 (08:59→21:22)
[2021-07-16] MEDS: PANTOPRAZOLE 40 MG TABLET PO SCH (08:59)
[2021-07-16] MEDS: carvediloL 12.5 MG TABLET PO SCH ×2 (08:59→16:47)
[2021-07-16] MEDS: BENZONATATE 100 MG CAPSULE PO SCH ×3 (08:59→21:23)
[2021-07-16] MEDS: ASCORBIC ACID 500 MG TABLET PO SCH ×2 (08:59→21:22)
[2021-07-16] MEDS: CYANOCOBALAMIN 500 MCG TABLET PO SCH (09:07)
[2021-07-16] MEDS: POTASSIUM CHLORIDE 10 MEQ TABLET PO SCH (11:33)
[2021-07-16] MEDS: cefTRIAXone 1,000 MG in SODIUM CHLORIDE 0.9% 100 ML IV SCH (11:35)
[2021-07-16] MEDS: SODIUM CHLORIDE 0.9% 1,000 ML IV SCH (16:46)
[2021-07-16] MEDS: [UNRECOGNIZED DRUG - OTHER] PO SCH (21:22)
[2021-07-16] MEDS: ATORVASTATIN 40 MG TABLET PO SCH (21:22)
[2021-07-16] MEDS: FENOFIBRIC ACID 135 MG PO SCH (21:22)
[2021-07-16] MEDS: MELATONIN 3 MG TABLET PO PRN (21:23)
[2021-07-17 05:28] LABS: Basophils # 0.1 10*3/uL (0.0-0.2); Basophils % 0.6 % (0.0-0.8); Eosinophils # 0.1 10*3/uL (0.0-0.87); Eosinophils % 1.6 % (0.00-10.9); Hematocrit 33.2 VOL% (42.0-52.0); Hemoglobin 10.9 GM/DL (14.0-18.0); Immature Granulocytes % 0.8 %; Immature Granulocytes Absolute 0.06 #; Lymphocytes # 1.3 10*3/uL (1.4-4.0); Lymphocytes % 16.6 % (21.2-54.2); Mean Corpuscular HGB Conc 32.8 GM/DL (32-36); Mean Corpuscular Volume 80.8 FL (87-102); Mean Platelet Volume 11.7 FL (9.6-12.0); Monocytes # 1.1 10*3/uL (0.11-0.8); Monocytes % 14.1 % (1.7-12.7); Neutrophils % 66.3 % (38.7-73.9); Platelet Count 204 T/CUMM (130-400); Red Blood Count 4.11 MC/CUMM (3.8-5.5); Red Cell Distribution Width 16.9 % (9.3-17.3)
[2021-07-17 05:40] LABS: Osmolality,Calculated 279.2 MOS/KG (273-304); Potassium 3.1 MMOL/L (3.5-5.1)
[2021-07-17] MEDS: RIVAROXABAN 15 MG TABLET PO SCH (09:15)
[2021-07-17] MEDS: POTASSIUM CHLORIDE 10 MEQ TABLET PO SCH ×2 (09:15→21:47)
[2021-07-17] MEDS: RANOLAZINE 500 MG TABLET PO SCH ×2 (09:15→20:54)
[2021-07-17] MEDS: PANTOPRAZOLE 40 MG TABLET PO SCH (09:15)
[2021-07-17] MEDS: carvediloL 12.5 MG TABLET PO SCH ×2 (09:15→16:00)
[2021-07-17] MEDS: BUMETANIDE 1 MG TABLET PO SCH ×2 (09:15→20:54)
[2021-07-17] MEDS: MAGNESIUM CHLORIDE 64 MG TABLET PO SCH ×2 (09:15→20:54)
[2021-07-17] MEDS: CHOLECALCIFEROL 1,000 UNIT TABLET PO SCH (09:15)
[2021-07-17] MEDS: ASCORBIC ACID 500 MG TABLET PO SCH ×2 (09:15→20:55)
[2021-07-17] MEDS: OMEGA 3 ACID ETHYL ESTERS 1 GM CAPSULE PO SCH ×2 (09:15→20:55)
[2021-07-17] MEDS: BENZONATATE 100 MG CAPSULE PO SCH ×3 (09:16→20:54)
[2021-07-17] MEDS: ISOSORBIDE MONONITRATE 60 MG TABLET PO SCH (09:16)
[2021-07-17] MEDS: ASPIRIN EC 81 MG TABLET PO SCH (09:16)
[2021-07-17] MEDS: CYANOCOBALAMIN 500 MCG TABLET PO SCH (09:16)
[2021-07-17] MEDS: DOCUSATE SODIUM 100 MG CAPSULE PO SCH ×2 (09:16→20:54)
[2021-07-17] MEDS: INSULIN NPH/REGULAR 70/30 100 UNIT/ML SUBCUT SCH ×2 (09:16→16:00)
[2021-07-17] MEDS: cefTRIAXone 1,000 MG in SODIUM CHLORIDE 0.9% 100 ML IV SCH (12:16)
[2021-07-17] MEDS: ALBUTEROL/IPRATROPIUM 3 ML NEB RESP TX SCH ×2 (12:58→19:26)
[2021-07-17] MEDS: POTASSIUM CHLORIDE 20 MEQ TABLET PO PRN ×3 (16:00→20:54)
[2021-07-17] MEDS: MELATONIN 3 MG TABLET PO PRN (20:54)
[2021-07-17] MEDS: ATORVASTATIN 40 MG TABLET PO SCH (20:55)
[2021-07-17] MEDS: [UNRECOGNIZED DRUG - OTHER] PO SCH (21:47)
[2021-07-17] MEDS: FENOFIBRIC ACID 135 MG PO SCH (21:47)
[2021-07-18 06:11] LABS: Basophils # 0.1 10*3/uL (0.0-0.2); Basophils % 0.7 % (0.0-0.8); Eosinophils # 0.2 10*3/uL (0.0-0.87); Eosinophils % 2.4 % (0.00-10.9); Hematocrit 35.1 VOL% (42.0-52.0); Hemoglobin 11.5 GM/DL (14.0-18.0); Immature Granulocytes % 1.3 %; Immature Granulocytes Absolute 0.09 #; Lymphocytes # 1.3 10*3/uL (1.4-4.0); Lymphocytes % 17.9 % (21.2-54.2); Mean Corpuscular HGB Conc 32.8 GM/DL (32-36); Mean Corpuscular Volume 81.3 FL (87-102); Mean Platelet Volume 11.7 FL (9.6-12.0); Monocytes % 14.1 % (1.7-12.7); Neutrophils % 63.6 % (38.7-73.9); Platelet Count 230 T/CUMM (130-400); Red Blood Count 4.32 MC/CUMM (3.8-5.5)
[2021-07-18 06:25] LABS: Calcium 9.5 MG/DL (8.5-10.1); Osmolality,Calculated 282.1 MOS/KG (273-304); Potassium 3.6 MMOL/L (3.5-5.1)
[2021-07-18] MEDS: ALBUTEROL/IPRATROPIUM 3 ML NEB RESP TX SCH (07:40)
[2021-07-18] MEDS ORDERED: BUMETANIDE 1 MG TABLET PO SCH (08:00)
[2021-07-18 08:13] VITALS: BP 117/47
[2021-07-18] MEDS: INSULIN NPH/REGULAR 70/30 100 UNIT/ML SUBCUT SCH (08:28)
[2021-07-18] MEDS: OMEGA 3 ACID ETHYL ESTERS 1 GM CAPSULE PO SCH (08:28)
[2021-07-18] MEDS: CHOLECALCIFEROL 1,000 UNIT TABLET PO SCH (08:29)
[2021-07-18] MEDS: RANOLAZINE 500 MG TABLET PO SCH (08:29)
[2021-07-18] MEDS: DOCUSATE SODIUM 100 MG CAPSULE PO SCH (08:29)
[2021-07-18] MEDS: ASPIRIN EC 81 MG TABLET PO SCH (08:29)
[2021-07-18] MEDS: CYANOCOBALAMIN 500 MCG TABLET PO SCH (08:29)
[2021-07-18] MEDS: POTASSIUM CHLORIDE 10 MEQ TABLET PO SCH (08:29)
[2021-07-18] MEDS: MAGNESIUM CHLORIDE 64 MG TABLET PO SCH (08:30)
[2021-07-18] MEDS: RIVAROXABAN 15 MG TABLET PO SCH (08:30)
[2021-07-18] MEDS: ISOSORBIDE MONONITRATE 60 MG TABLET PO SCH (08:30)
[2021-07-18] MEDS: ASCORBIC ACID 500 MG TABLET PO SCH (08:30)
[2021-07-18] MEDS: BENZONATATE 100 MG CAPSULE PO SCH (08:30)
[2021-07-18] MEDS: carvediloL 12.5 MG TABLET PO SCH (08:30)
[2021-07-18] MEDS: PANTOPRAZOLE 40 MG TABLET PO SCH (08:30)
[2021-07-18] MEDS: cefTRIAXone 1,000 MG in SODIUM CHLORIDE 0.9% 100 ML IV SCH (08:51)
== END 2021-07-18 09:46 | disposition home or self-care (01) | DRG 864 ==
LOC: N.ED 09:31 → N.EDINP 12:10 → N.3E 23:31
PROVIDERS: ADMIT Internal Medicine; ATTEND Internal Medicine

== ENCOUNTER 2022-03-31 12:35 | Observation (INO) ==
[2022-03-31 13:01] LABS: Basophils % 0.4 % (0.0-0.8); Eosinophils % 0.4 % (0.00-10.9); Hematocrit 29.7 VOL% (42.0-52.0); Hemoglobin 9.5 GM/DL (14.0-18.0); Immature Granulocytes % 0.5 %; Immature Granulocytes Absolute 0.04 #; Lymphocytes % 14.1 % (21.2-54.2); Mean Corpuscular Volume 86.3 FL (87-102); Mean Platelet Volume 10.4 FL (9.6-12.0); Monocytes % 13.7 % (1.7-12.7); Neutrophils % 70.9 % (38.7-73.9); Platelet Count 189 T/CUMM (130-400); Red Blood Count 3.44 MC/CUMM (3.8-5.5); Red Cell Distribution Width 16.8 % (9.3-17.3); White Blood Count 7.3 T/CUMM (4-12)
[2022-03-31 13:11] LABS: INR 1.5; PT Patient Result 16.4 SECS (10.1-12.1)
[2022-03-31 13:25] LABS: Albumin 2.7 G/DL (3.4-5.0); Bilirubin,Total 0.7 MG/DL (0.20-1.00); Potassium 3.9 MMOL/L (3.5-5.1); Total Protein 6.8 G/DL (6.4-8.2)
[2022-03-31 13:41] LABS: Free T4 (Free Thyroxine) 0.88 NG/DL (0.76-1.46); Thyroid Stimulating Hormone 3.94 uIU/ml (0.358-3.74)
[2022-03-31] MEDS ORDERED: ONDANSETRON 4 MG/2 ML VIAL IV PRN (14:24)
[2022-03-31] MEDS ORDERED: ACETAMINOPHEN 325 MG TABLET PO PRN (14:24)
[2022-03-31] MEDS: SODIUM CHLORIDE 0.9% 1,000 ML IV SCH (14:36)
[2022-03-31 17:34] LABS: Hyaline Casts,Urine 3 /LPF (0-3); RBC,Urine 2 /HPF (0-4)
[2022-03-31 17:35] LABS: Bilirubin,Urine Negative (Negative); Blood, Urine Negative (Negative); Glucose,Urine (UA) Negative (Negative); Ketones,Urine Negative (Negative); Nitrite,Urine Negative (Negative); Protein,Urine Negative (Negative); Urine Appearance Clear (Clear); Urine Color Yellow (Yellow); Urine Urobilinogen 0.2 eU/dL (<2.0)
[2022-03-31] MEDS ORDERED: NITROGLYCERIN SL 0.4 MG TABLET SL PRN (19:28)
[2022-03-31] MEDS ORDERED: FUROSEMIDE 40 MG/4 ML VIAL IV ONE (19:40)
[2022-03-31] MEDS ORDERED: INSULIN ASPART PROTAMINE/ASPART 70/30 100 UNIT/ML SUBCUT SCH (21:00)
[2022-03-31] MEDS ORDERED: carvediloL 12.5 MG TABLET PO SCH (21:00)
[2022-03-31] MEDS: DOCUSATE SODIUM 100 MG CAPSULE PO SCH (21:04)
[2022-03-31] MEDS: GABAPENTIN 100 MG CAPSULE PO SCH (21:04)
[2022-03-31] MEDS: RANOLAZINE 500 MG TABLET PO SCH (21:04)
[2022-03-31] MEDS: POTASSIUM CHLORIDE 10 MEQ TABLET PO SCH (21:04)
[2022-03-31] MEDS: BUMETANIDE 1 MG TABLET PO SCH (21:04)
[2022-03-31] MEDS: SERTRALINE 100 MG TABLET PO SCH (21:04)
[2022-03-31] MEDS: ATORVASTATIN 40 MG TABLET PO SCH (21:04)
[2022-03-31] MEDS: MAGNESIUM OXIDE 400 MG TABLET PO SCH (21:04)
[2022-03-31] MEDS: cefTRIAXone 1,000 MG in SODIUM CHLORIDE 0.9% 100 ML IV SCH (22:00)
[2022-03-31] MEDS ORDERED: MELATONIN 3 MG TABLET PO PRN (22:53)
[2022-04-01 05:57] LABS: Basophils % 0.3 % (0.0-0.8); Eosinophils # 0.1 10*3/uL (0.0-0.87); Eosinophils % 0.9 % (0.00-10.9); Hematocrit 31.8 VOL% (42.0-52.0); Immature Granulocytes % 0.8 %; Immature Granulocytes Absolute 0.06 #; Lymphocytes # 1.1 10*3/uL (1.4-4.0); Lymphocytes % 14.3 % (21.2-54.2); Mean Corpuscular HGB Conc 31.4 GM/DL (32-36); Mean Corpuscular Volume 84.6 FL (87-102); Mean Platelet Volume 10.9 FL (9.6-12.0); Monocytes # 1.3 10*3/uL (0.11-0.8); Monocytes % 16.2 % (1.7-12.7); Neutrophils % 67.5 % (38.7-73.9); Platelet Count 210 T/CUMM (130-400); Red Blood Count 3.76 MC/CUMM (3.8-5.5); Red Cell Distribution Width 16.6 % (9.3-17.3); White Blood Count 7.8 T/CUMM (4-12)
[2022-04-01 06:20] LABS: Calcium 8.8 MG/DL (8.5-10.1); Osmolality,Calculated 279.1 MOS/KG (273-304); Potassium 3.4 MMOL/L (3.5-5.1)
[2022-04-01 06:22] LABS: Eosinophils 2 % (0-10); Hypochromia Slight; Lymphocytes 18 % (20-55); Microcytosis Slight; Platelet Estimate Adequate; Total Cells Counted 100
[2022-04-01] MEDS ORDERED: POTASSIUM CHLORIDE 20 MEQ TABLET PO ONE (08:26)
[2022-04-01] MEDS: INSULIN REGULAR 100 UNIT/ML SUBCUT SCH ×4 (09:07→21:15)
[2022-04-01] MEDS: RANOLAZINE 500 MG TABLET PO SCH ×2 (09:08→21:15)
[2022-04-01] MEDS: INSULIN ASPART PROTAMINE/ASPART 70/30 100 UNIT/ML SUBCUT SCH (09:08)
[2022-04-01] MEDS: carvediloL 12.5 MG TABLET PO SCH ×2 (09:08→16:15)
[2022-04-01] MEDS: ISOSORBIDE MONONITRATE 60 MG TABLET PO SCH (09:08)
[2022-04-01] MEDS: POTASSIUM CHLORIDE 10 MEQ TABLET PO SCH ×2 (09:09→21:15)
[2022-04-01] MEDS: MAGNESIUM OXIDE 400 MG TABLET PO SCH ×2 (09:09→21:16)
[2022-04-01] MEDS: BUMETANIDE 1 MG TABLET PO SCH ×2 (09:10→21:15)
[2022-04-01] MEDS: PANTOPRAZOLE 40 MG TABLET PO SCH (09:10)
[2022-04-01] MEDS: DOCUSATE SODIUM 100 MG CAPSULE PO SCH ×2 (09:10→21:15)
[2022-04-01] MEDS: ASPIRIN EC 81 MG TABLET PO SCH (09:10)
[2022-04-01] MEDS: FENOFIBRIC ACID 135 MG PO SCH (09:15)
[2022-04-01] MEDS: RIVAROXABAN 15 MG TABLET PO SCH (09:41)
[2022-04-01] MEDS: SODIUM CHLORIDE 0.9% 1,000 ML IV SCH (12:35)
[2022-04-01] MEDS ORDERED: INSULIN ASPART PROTAMINE/ASPART 70/30 100 UNIT/ML SUBCUT SCH (17:00)
[2022-04-01] MEDS: ATORVASTATIN 40 MG TABLET PO SCH (21:14)
[2022-04-01] MEDS: SERTRALINE 100 MG TABLET PO SCH (21:15)
[2022-04-01] MEDS: cefTRIAXone 1,000 MG in SODIUM CHLORIDE 0.9% 100 ML IV SCH (21:15)
[2022-04-01] MEDS: GABAPENTIN 100 MG CAPSULE PO SCH (21:15)
[2022-04-02 06:52] VITALS: BP 154/57
[2022-04-02] MEDS: RIVAROXABAN 15 MG TABLET PO SCH (08:39)
[2022-04-02] MEDS: MAGNESIUM OXIDE 400 MG TABLET PO SCH (08:39)
[2022-04-02] MEDS: DOCUSATE SODIUM 100 MG CAPSULE PO SCH (08:39)
[2022-04-02] MEDS: carvediloL 12.5 MG TABLET PO SCH (08:39)
[2022-04-02] MEDS: POTASSIUM CHLORIDE 10 MEQ TABLET PO SCH (08:40)
[2022-04-02] MEDS: INSULIN ASPART PROTAMINE/ASPART 70/30 100 UNIT/ML SUBCUT SCH (08:40)
[2022-04-02] MEDS: RANOLAZINE 500 MG TABLET PO SCH (08:40)
[2022-04-02] MEDS: ISOSORBIDE MONONITRATE 60 MG TABLET PO SCH (08:40)
[2022-04-02] MEDS: PANTOPRAZOLE 40 MG TABLET PO SCH (08:40)
[2022-04-02] MEDS: BUMETANIDE 1 MG TABLET PO SCH (08:40)
[2022-04-02] MEDS: ASPIRIN EC 81 MG TABLET PO SCH (08:40)
[2022-04-02] MEDS: FENOFIBRIC ACID 135 MG PO SCH (09:02)
[2022-04-02] MEDS: INSULIN REGULAR 100 UNIT/ML SUBCUT SCH (09:02)
[2022-04-02] MEDS: SODIUM CHLORIDE 0.9% 1,000 ML IV SCH (09:03)
== END 2022-04-02 10:21 | disposition home health service (06) ==
LOC: EDUNIT# → EDBD → N.ED 12:35 → N.EDINP 12:35 → N.3E 14:59
PROVIDERS: ADMIT Internal Medicine; ATTEND Internal Medicine